=== PATIENT | female | born 1985 | race Caucasian/White ===

== ENCOUNTER 2018-01-29 17:24 | Emergency (ER) | payer OTHER ==
[2018-01-29 18:04] VITALS: BP 109/69; PULSE 89; TEMP 98.1; BMI 27.8
--- NOTE | 2018-01-29 18:34 | PDOC ---
History of Present Illness - General Chief Complaint: Palpitations Stated Complaint: HEART PALPITATIONS Time Seen by Provider: 01/29/18 17:34 - History of Present Illness Initial Comments: 01/29/18 18:23 32 year old A1 with a history of C4-C6 disk herniation currently 26 weeks (LNMP 08/02/17) who presents with 1 week of shaking legs while standing w/ numbness in the arms and hands now with 1 episode of a nose bleed that has since resolved. She notes that when she stands she feels the shaking in the legs, headaches, heart palpitations and slight dizziness as if the room is spinning. She reports some swelling in the ankles for which she saw her PCP and was referred to vascular who did not find significant findings. She denies shortness of breath, abdominal pain, diarrhea, constipation, vaginal bleeding, pain with urination and blood in urine or stool. She has no other complaints at bedside. PMHX: as in HPI Meds: Tylenol BID Allergies: none Tob: none Etoh: none Rec drugs: none Past History - Past Medical History Allergies/Adverse Reactions: Allergies Allergy/AdvReac Type Severity Reaction Status Date / Time No Known Allergies Allergy Verified 01/29/18 18:04 COPD: No - Suicide/Smoking/Psychosocial Hx Smoking History: Never smoked Have you smoked in the past 12 months: No Information on smoking cessation initiated: No Hx Alcohol Use: No Drug/Substance Use Hx: No Review of Systems - Review of Systems Able to Perform ROS?: Yes Is the patient limited Croatian proficient: No Constitutional: No: Chills *Physical Exam - Vital Signs Last Vital Signs Temp Pulse Resp BP Pulse Ox 98.1 F 89 22 109/69 100 01/29/18 17:59 01/29/18 17:59 01/29/18 17:59 01/29/18 17:59 01/29/18 17:59 - Physical Exam Comments: 01/29/18 18:54 GENERAL: Awake, alert, and fully oriented, in no acute distress HEAD: No signs of trauma, normocephalic, atraumatic EYES: EOMI, sclera anicteric, conjunctiva clear ENT: oropharynx clear without exudates. Moist mucosa NECK: Normal ROM, no c-spine tenderness LUNGS: No distress, speaks full sentences, + mild expiratory wheeze HEART: Regular rate and rhythm, normal S1 and S2, no murmurs, rubs or gallops, peripheral pulses normal and equal bilaterally. ABDOMEN: Soft, nontender, normoactive bowel sounds. No guarding, no rebound. No masses EXTREMITIES : Normal inspection, Normal range of motion, no edema. No clubbing or cyanosis. NEUROLOGICAL: Normal speech, normal gait, no focal sensorimotor deficits SKIN: Warm, Dry, normal turgor, no rashes or lesions noted ED Treatment Course - LABORATORY CBC & Chemistry Diagram: 01/29/18 18:50 01/29/18 20:33 Medical Decision Making - Medical Decision Making 01/29/18 18:59 32 year old A1 with a history of C4-C6 disk herniation currently 26 weeks (LNMP 08/02/17) who presents with 1 week of shaking legs while standing w/ numbness in the arms and hands now with 1 episode of a nose bleed that has since resolved. The patient notes that she has had sciatica in the past and states that this pain feels similar. Possible etiologies include sciatica vs hyperthyroidism vs cardiac arrythmia vs pre-eclampsia. 01/29/18 19:44 Per attending assessment the patient's exam is most consistent with sciatica. Patient was counseled about sciatica treatments. 01/29/18 19:47 Labs and EKG returned unremarkable. Attending discussed case with L&D who advised the patient. See attending notes for disposition discussion notes. FHR on bedside ultrasound: [employer] number: [id number] *DC/Admit/Observation/Transfer Diagnosis at time of Disposition: Sciatica, Low back pain - Discharge Dispostion Disposition: HOME Condition at time of disposition: Stable Decision to Admit order: No - Referrals Referrals: Reinaldo Adan MD [Staff Physician] - - Patient Instructions Printed Discharge Instructions: DI for Sciatica Additional Instructions: You were seen in the ED for complaints of leg shakiness and headaches. In the ED you were evaluated with labwork and treated symptomatically with pain relief. Your lab values were unremarkable. There does not appear to be a need for immediate hospitalization. You are advised to follow up with your primary care physician and color finisher in 1 week. Return to the ED immediately if you experience chest pain, worsening headaches, weakness, loss of consciousness, nausea, vomiting, fevers. Please use epsom salt bathes. Please place a pillow between your legs when sleeping and under your abdomen when laying on your side. Fuiste vista en el departamento de emergencias por quejas de temblores en las piernas y chase de buck. En el servicio de urgencias fue evaluado con anlisis de laboratorio y tratado sintomticamente con alivio del dolor. Opal valores de laboratorio no fueron notables. No parece rachael sabrina necesidad de hospitalizacin inmediata. Se le recomienda hacer un seguimiento con stone mdico de atencin primaria y stone gineclogo en 1 semana. Regrese al servicio de urgencias inmediatamente si experimenta dolor en el pecho , empeoramiento de los chase de buck, debilidad, prdida del conocimiento, nuseas, vmitos, fiebres - Post Discharge Activity
[2018-01-29 19:06] LABS: BASO % 0.2 % (0-2.0); EOS % 0.3 % (0-4.5); HEMATOCRIT 34.1 % (32.4-45.2); HEMOGLOBIN 11.9 GM/dL (10.7-15.3); LYMPH % 20.2 % (8-40); MCH 32.7 pg (25.7-33.7); MCHC 34.8 g/dl (32.0-36.0); MEAN CELL VOLUME 94.1 fl (80-96); MEAN PLT VOLUME 8.4 fl (7.5-11.1); MONO % 5.3 % (3.8-10.2); PLATELET COUNT 235 K/MM3 (134-434); RBC 3.62 M/mm3 (3.60-5.2); WHITE BLOOD COUNT 9.3 K/mm3 (4.0-10.0)
--- NOTE | 2018-01-29 19:06 | PDOC ---
Attending Attestation - HPI HPI: 01/29/18 20:40 The patient is a 26 weeks 32 year old female A1, with a significant PMH of C4-C6 disk herniation, sciatica, who presents to the emergency department complaining of 1 week of legs shaking while standing. The patient states she has had multiple episode of legs shaking while standing with associated headaches and palpitations. The patient reports she has visited her INDUSTRIAL LABORER for the same complaint of leg shaking who sent her to a vascular doctor who performed imaging with negative results. She denies any recent falls, injuries or trauma. She denies any recent vaginal bleeding. She denies any abdominal pain or cramping. The patient denies chest pain, shortness of breath, and dizziness. Denies fever, chills, nausea, vomit, diarrhea and constipation. Denies dysuria, frequency, urgency and hematuria. Allergies: NKA - Physicial Exam PE: 01/29/18 20:42 GENERAL: Awake, alert, and fully oriented, in no acute distress HEAD: No signs of trauma EYES: PERRLA, EOMI, sclera anicteric, conjunctiva clear ENT: Auricles normal inspection, hearing grossly normal, nares patent, oropharynx clear without exudates. Moist mucosa NECK: Normal ROM, supple, no lymphadenopathy, JVD, or masses LUNGS: Breath sounds equal, clear to auscultation bilaterally. No wheezes, and no crackles HEART: Regular rate and rhythm, normal S1 and S2, no murmurs, rubs or gallops ABDOMEN: Soft, nontender, normoactive bowel sounds. No guarding, no rebound. No masses EXTREMITIES: +Paraspinal tenderness. Normal range of motion, no edema. No clubbing or cyanosis. No cords, erythema, or tenderness NEUROLOGICAL: Cranial nerves II through XII grossly intact. Normal speech, normal gait SKIN: Warm, Dry, normal turgor, no rashes or lesions noted. <Kael Mercado - Last Filed: 01/29/18 20:47> - Resident Resident Name: Janie Sharma - ED Attending Attestation I have performed the following: I have examined & evaluated the patient, The case was reviewed & discussed with the resident, I agree w/resident's findings & plan, Exceptions are as noted - Medical Decision Making 01/29/18 19:06 I, Dr. Symone Miller, DO, attest that this document has been prepared under my direction and personally reviewed by me in its entirety. I further attest, that it accurately reflects all work, treatment, procedures and medical decision -making performed by me. 01/29/18 20:29 a/p: 32yo at 26 weeks with back pain and paresthesias -story consistent with sciatica - paraspinal ttp with buttock ttp and paresthsias down legs -no LE weakness, no sensory changes -also with davis -given davis - will check pre-eclampsia labs -will give tylenol and reglan for davis -will send ua -no loss of fluid or vag bleeding -pt is delivering in the [place] -pt has had care -hx of herniated discs in back -suspect body changes are causing sciatica -discussed sleeping with pillows appropriately placed under belly and between her legs -discussed epsom salt bathes 01/29/18 21:52 pt states feeling better davis improved case discussed with L&D po challenge given will send to L&D for monitoring <Symone Miller - Last Filed: 01/29/18 21:57> Discharge Disposition - Discharge Dispostion Decision to Admit order: No <Symone Miller - Last Filed: 01/29/18 21:57> - Diagnosis Sciatica, Low back pain - Discharge Dispostion Disposition: HOME Condition at time of disposition: Stable - Referrals Referrals: Reinaldo Adan MD [Staff Physician] - - Patient Instructions Printed Discharge Instructions: DI for Sciatica Additional Instructions: You were seen in the ED for complaints of leg shakiness and headaches. In the ED you were evaluated with labwork and treated symptomatically with pain relief. Your lab values were unremarkable. There does not appear to be a need for immediate hospitalization. You are advised to follow up with your primary care physician and pot feeder in 1 week. Return to the ED immediately if you experience chest pain, worsening headaches, weakness, loss of consciousness, nausea, vomiting, fevers. Please use epsom salt bathes. Please place a pillow between your legs when sleeping and under your abdomen when laying on your side. Fuiste vista en el departamento de emergencias por quejas de temblores en las piernas y chase de buck. En el servicio de urgencias fue evaluado con anlisis de laboratorio y tratado sintomticamente con alivio del dolor. Opal valores de laboratorio no fueron notables. No parece rachael sabrina necesidad de hospitalizacin inmediata. Se le recomienda hacer un seguimiento con stone mdico de atencin primaria y stone gineclogo en 1 semana. Regrese al servicio de urgencias inmediatamente si experimenta dolor en el pecho , empeoramiento de los chase de buck, debilidad, prdida del conocimiento, nuseas, vmitos, fiebres - Post Discharge Activity Attestations - Attestations 01/29/18 20:47 Documentation prepared by Kael Mercado, acting as manager of medical for Symone Miller DO. <Kael Mercado - Last Filed: 01/29/18 20:47>
[2018-01-29] MEDS ORDERED: METOCLOPRAMIDE HCL INJECTION 10 MG/2 ML VIAL IVPUSH ONE (19:07)
[2018-01-29] MEDS ORDERED: SODIUM CHLORIDE 0.9% 1000 ML INFUS.BAG IV ONE (19:07)
[2018-01-29] MEDS ORDERED: ACETAMINOPHEN 500 MG TABLET (FP) PO ONE (19:07)
[2018-01-29] MEDS ORDERED: ALBUTEROL SO4 0.083% IH SOL 2.5 MG/3 ML VIAL.NEB. NEB ONE (19:07)
[2018-01-29 19:19] LABS: INR 1.04 (0.83-1.09); PROTHROMBIN TIME (PATIENT) 11.7 SEC (9.7-13.0)
[2018-01-29] MEDS ORDERED: ACETAMINOPHEN 1000 MG/100 ML VIAL (NON FORMULARY) IVPB ONE (19:41)
[2018-01-29] MEDS ORDERED: METOCLOPRAMIDE HCL INJECTION 10 MG/2 ML VIAL ONE (20:10)
[2018-01-29] MEDS ORDERED: ACETAMINOPHEN INJECTION 100 ML IVPB ONE (20:10)
[2018-01-29 20:50] LABS: URINE APPEARANCE CLEAR; URINE BILIRUBIN NEGATIVE (<2.0 mg/dL); URINE COLOR LTYELLOW; URINE GLUCOSE (UA) NEGATIVE (NEGATIVE); URINE KETONE NEGATIVE (NEGATIVE); URINE LEUK ESTERASE NEGATIVE (NEGATIVE); URINE NITRITE NEGATIVE (NEGATIVE); URINE PROTEIN NEGATIVE (NEGATIVE); URINE UROBILINOGEN NEGATIVE mg/dL (0.2-1.0)
[2018-01-29 21:13] LABS: ALBUMIN 2.8 g/dl (3.4-5.0); ALK PHOS 85 U/L (45-117); ANION GAP 11 (8-16); BILIRUBIN,TOTAL 0.2 mg/dL (0.2-1.0); BLOOD UREA NITROGEN 8 mg/dL (7-18); CALCIUM 8.3 mg/dL (8.5-10.1); CHLORIDE 109 mmol/L (98-107); CO2 22 mmol/L (21-32); CREATININE 0.5 mg/dL (0.55-1.02); GLUCOSE,RANDOM 133 mg/dL (74-106); MAGNESIUM 1.8 mg/dL (1.8-2.4); POTASSIUM 3.5 mmol/L (3.5-5.1); SGOT/AST 20 U/L (15-37); SGPT/ALT 35 U/L (12-78); SODIUM 142 mmol/L (136-145); TOT PROT 6.4 g/dl (6.4-8.2)
--- NOTE | 2018-01-31 09:07 | EKG ---
Test Reason : Blood Pressure : / mmHG Vent. Rate : 075 BPM Atrial Rate : 075 BPM P-R Int : 146 ms QRS Dur : 066 ms QT Int : 372 ms P-R-T Axes : 054 062 033 degrees QTc Int : 415 ms NORMAL SINUS RHYTHM NORMAL ECG NO PREVIOUS ECGS AVAILABLE Confirmed by OLGA ROSALES MD ([id number]) on 01/31/2018 9:07:30 AM Referred By: Confirmed By:OLGA ROSALES MD
== END 2018-01-29 22:21 | disposition home or self-care (01) ==
LOC: JER 17:24
PROC: 3E033NZ Introduction of Analgesics, Hypnotics, Sedatives into Peripheral Vein, Percutaneous Approach (ICD-10-PCS; principal; 2018-01-29)
PROC: 3E033GC Introduction of Other Therapeutic Substance into Peripheral Vein, Percutaneous Approach (ICD-10-PCS; 2018-01-29)
PROC: 3E0337Z Introduction of Electrolytic and Water Balance Substance into Peripheral Vein, Percutaneous Approach (ICD-10-PCS; 2018-01-29)
PROC: 3E0F7GC Introduction of Other Therapeutic Substance into Respiratory Tract, Via Natural or Artificial Opening (ICD-10-PCS; 2018-01-29)
DX: O26.892 Other specified pregnancy related conditions, second trimester (principal); Z3A.26 26 weeks gestation of pregnancy; M54.40 Lumbago with sciatica, unspecified side
CPT/HCPCS: 36415; 80053; 81003; 83735; 85025; 85610; 87086; 93005; 93010; 99282-25; J0131; J7030